=== PATIENT | female | born 1980 | race Two or more races ===

== ENCOUNTER 2017-09-11 14:39 | Emergency (ER) | payer MEDICAID, OTHER ==
[~2017-09-11] VITALS: Ht 154.9 cm; Wt 90.3 kg
[2017-09-11 15:12] VITALS: BP 134/70
== END 2017-09-11 19:00 | disposition left against medical advice (07) ==
LOC: ER 14:46
DX: Z76.0 Encounter for issue of repeat prescription (principal); Z53.21 Procedure and treatment not carried out due to patient leaving prior to being seen by health care provider

== ENCOUNTER 2017-09-19 02:28 | Emergency (ER) | payer MEDICAID ==
[~2017-09-19] VITALS: Ht 154.9 cm; Wt 90.3 kg
[2017-09-19] MEDS ORDERED: LORazepam 0.5 MG TAB PO ONE (03:00)
[2017-09-19 05:45] VITALS: BP 130/73
== END 2017-09-19 06:06 | disposition home or self-care (01) ==
LOC: ER 02:29
DX: F41.9 Anxiety disorder, unspecified (principal); F32.9 Major depressive disorder, single episode, unspecified; R25.3 Fasciculation
CPT/HCPCS: 36600; 70450; 81025; 82805